=== PATIENT | male | born 1960 | race Caucasian/White ===

== ENCOUNTER 2019-05-19 11:24 | Day surgery (SDC) | payer BC ==
[~2019-05-19] VITALS: Ht 172.7 cm; Wt 103.0 kg
[~2019-05-19 11:24] MED LIST: CEFAZOLIN 1,000 MG ONE
[2019-05-19 11:42] VITALS: BP 156/93
[2019-05-19] MEDS ORDERED: LACTATED RINGERS 1,000 ML IV SCH (11:47)
[2019-05-19] MEDS ORDERED: PLEASE ENTER WEIGHT MC SCH (12:00)
[2019-05-19] MEDS ORDERED: GOUT MED (12:24)
[2019-05-19 13:07] LABS: MICROSCOPIC INDICATED
[2019-05-19] MEDS ORDERED: FENTANYL PF 250 MCG/5ML ONE (13:27)
[2019-05-19] MEDS ORDERED: MIDAZOLAM 1 MG/ML, 2ML ONE (13:27)
[2019-05-19] MEDS ORDERED: PROPOFOL 10 MG/ML, 20ML ONE (13:28)
[2019-05-19] MEDS ORDERED: DEXAMETHASONE 4 MG/ML, 1ML ONE (13:28)
[2019-05-19] MEDS ORDERED: SUCCINYLCHOLINE 20 MG/ML, 10ML ONE (13:28)
[2019-05-19] MEDS ORDERED: ROCURONIUM 10MG/ML,5ML ONE (13:28)
[2019-05-19 13:43] LABS: CULTURE INDICATED? NO
[2019-05-19] MEDS ORDERED: MEPERIDINE/PF 25MG/ML,1ML IVPush PRN (14:00)
[2019-05-19] MEDS ORDERED: PROMETHAZINE 12.5 MG SUPP PR PRN (14:00)
[2019-05-19] MEDS ORDERED: ONDANSETRON ODT 8 MG PO PRN (14:00)
[2019-05-19] MEDS ORDERED: HALOPERIDOL 5 MG/ML IV PRN (14:00)
[2019-05-19] MEDS ORDERED: ONDANSETRON 2MG/ML, 2ML IV PRN (14:00)
[2019-05-19] MEDS ORDERED: DIAZEPAM 5 MG/ML, 2ML IVPush PRN (14:00)
[2019-05-19] MEDS ORDERED: OXYcodone 5 MG/5 ML ORAL.SOL UDC PO PRN (14:00)
[2019-05-19] MEDS ORDERED: PROMETHAZINE 25 MG/ML, 1ML IV PRN (14:00)
[2019-05-19] MEDS ORDERED: MIDAZOLAM 1 MG/ML, 2ML IV PRN (14:00)
[2019-05-19] MEDS ORDERED: ALBUTEROL SULFATE 2.5 MG/3 ML NPPB PRN (14:00)
[2019-05-19] MEDS ORDERED: FENTANYL PF 100 MCG/2ML IV PRN (14:00)
[2019-05-19] MEDS ORDERED: ACETAMINOPHEN 325 MG TABLET PO PRN (14:00)
[2019-05-19] MEDS ORDERED: LABETALOL 5MG/ML, 20ML IV PRN (14:00)
[2019-05-19] MEDS ORDERED: EPHEDRINE 50 MG/ML, 1ML IVPush PRN (14:00)
[2019-05-19] MEDS ORDERED: hydrALAzine 20 MG/ML, 1ML IV PRN (14:00)
[2019-05-19] MEDS ORDERED: ONDANSETRON 2MG/ML, 2ML ONE (14:52)
[2019-05-19] MEDS ORDERED: OMNIPAQUE 350 MG/ML, 50 ML BOTTLE ONE (15:00)
[2019-05-19] MEDS ORDERED: HYDROmorphone 1 MG/ML, 1ML INJ IVPush PRN (15:00)
== END 2019-05-19 17:55 | disposition home or self-care (01) ==
LOC: OUT 11:24
PROVIDERS: ATTEND Urology
DX: N20.0 Calculus of kidney (principal); E66.9 Obesity, unspecified; Z68.32 Body mass index [BMI] 32.0-32.9, adult; Z79.82 Long term (current) use of aspirin; Z79.899 Other long term (current) drug therapy; Z87.442 Personal history of urinary calculi; Z88.5 Allergy status to narcotic agent; Z98.52 Vasectomy status; Z98.890 Other specified postprocedural states
CPT/HCPCS: 52356; 74420; 81001; 82360; 88300; 93005; C1758; C1769; C2617; J0330; J0690; J1100; J2250; J2405; J2704; J3010; J7120; Q9967

== ENCOUNTER 2020-05-25 10:43 | Inpatient (IN) | payer BC ==
[~2020-05-25] VITALS: Ht 172.7 cm; Wt 109.5 kg
[~2020-05-25 10:43] MED LIST changes: -CEFAZOLIN 1,000 MG ONE; +GOUT MED
[2020-05-25] MEDS ORDERED: SODIUM CHLORIDE FLUSH 10ML SYR IVF ONE (11:00)
--- NOTE | 2020-05-25 11:38 | NUR ---
PT C/O RIGHT LOWER ABD. PT WENT TO [facility] FOR THE PAIN AND WAS TOLD TO COME TO [facility] FOR TX OF KIDNEY STONE DESCRIBED "BIG" AND WONT PASS ON ITS OWN. PT PAIN 05/16 CURRENTLY. IV PLACED.
[2020-05-25 11:46] LABS: BASOPHILS % (AUTO) 1 % (0-1); EOSINOPHILS % (AUTO) 1 % (1-7); LYMPHOCYTES % (AUTO) 14 % (22-44); MEAN CORPUSCULAR HEMOGLOBIN 31.2 pg (27.5-34.5); MEAN CORPUSCULAR HGB CONC 35.1 g/dL (33.2-36.2); MONOCYTES % (AUTO) 9 % (2-9); NEUTROPHILS % (AUTO) 74 % (42-75); PLATELET COUNT 161 x10^3/uL (130-400); RED BLOOD COUNT 5.08 x10^6/uL (4.38-5.82); RED CELL DISTRIBUTION WIDTH 13.9 % (9.4-14.8)
[2020-05-25 11:51] LABS: MD NO
[2020-05-25 11:57] LABS: ALANINE AMINOTRANSFERASE 28 U/L (12-78); ALBUMIN 3.9 g/dL (3.4-5.0); ANION GAP 9 mmol/L (5-15); CALCIUM 9.7 mg/dL (8.5-10.1); CHLORIDE 112 mmol/L (98-107); CREATININE 1.78 mg/dL (0.7-1.3)
[2020-05-25 11:59] LABS: ALKALINE PHOSPHATASE 69 U/L (45-117); BILIRUBIN,TOTAL 0.6 mg/dL (0.2-1.0); TOTAL PROTEIN 7.7 g/dL (6.4-8.2)
--- NOTE | 2020-05-25 12:31 | NUR ---
REPORT TO XIMENA RN
[2020-05-25 12:39] LABS: MICROSCOPIC INDICATED
--- NOTE | 2020-05-25 12:45 | NUR ---
SPOUSE CELL, SAAD [phone]
[2020-05-25] MEDS ORDERED: OMNIPAQUE 350 MG/ML, 50 ML BOTTLE ONE (13:01)
[2020-05-25] MEDS ORDERED: CHLORHEXIDINE 15 ML UDC ONE (13:06)
[2020-05-25] MEDS ORDERED: ONDANSETRON ODT 4 MG PO PRN (13:30)
[2020-05-25] MEDS ORDERED: DOCUSATE 100 MG CAPSULE PO PRN (13:30)
[2020-05-25] MEDS ORDERED: POLYETHYLENE GLYCOL 17 GM PACKET PO PRN (13:30)
[2020-05-25] MEDS ORDERED: ONDANSETRON 2MG/ML, 2ML IVPush PRN ×2 (13:30→15:00)
[2020-05-25] MEDS ORDERED: HYDROcodone/APAP 5/325 TABLET PO PRN (13:30)
[2020-05-25] MEDS: SODIUM CHLORIDE 0.9% 1,000 ML IV SCH (13:30)
[2020-05-25] MEDS ORDERED: CHLORHEXIDINE 15 ML UDC MM ONE (13:30)
[2020-05-25] MEDS ORDERED: LACTATED RINGERS 1,000 ML IV SCH (13:30)
[2020-05-25] MEDS ORDERED: MELATONIN 5 MG TABLET PO PRN (13:30)
[2020-05-25] MEDS ORDERED: hydrALAzine 20 MG/ML, 1ML IVPush PRN (13:30)
[2020-05-25] MEDS ORDERED: BISACODYL 10 MG SUPP PR PRN (13:30)
[2020-05-25] MEDS ORDERED: morphine SULFATE 10 MG/ML, 1ML IVPush PRN (13:30)
[2020-05-25] MEDS ORDERED: PLEASE ENTER ALLERGIES MC SCH ×2 (14:30)
[2020-05-25] MEDS ORDERED: ONDANSETRON 2MG/ML, 2ML ONE (14:44)
[2020-05-25] MEDS ORDERED: GLYCOPYRROLATE 0.2MG/1ML, 5ML ONE (14:44)
[2020-05-25] MEDS ORDERED: CEFAZOLIN 1,000 MG ONE (14:44)
[2020-05-25] MEDS ORDERED: DEXAMETHASONE 4 MG/ML, 1ML ONE (14:44)
[2020-05-25] MEDS ORDERED: SUCCINYLCHOLINE 20 MG/ML, 10ML ONE (14:44)
[2020-05-25] MEDS ORDERED: PROPOFOL 10 MG/ML, 20ML ONE (14:44)
[2020-05-25] MEDS ORDERED: FENTANYL PF 250 MCG/5ML ONE (14:44)
[2020-05-25] MEDS ORDERED: SUGAMMADEX 200 MG/2 ML IVPush ONE (14:44)
[2020-05-25] MEDS ORDERED: ROCURONIUM 10MG/ML,5ML ONE (14:44)
[2020-05-25] MEDS ORDERED: NEOSTIGMINE 1 MG/ML, 10ML ONE (14:44)
[2020-05-25] MEDS ORDERED: METHOCARBAMOL 1,000 MG in DEXTROSE 5% 100 ML IV PRN (15:00)
[2020-05-25] MEDS ORDERED: ACETAMINOPHEN 325 MG TABLET PO PRN (15:00)
[2020-05-25] MEDS ORDERED: PROMETHAZINE 25 MG/ML, 1ML IVPush PRN (15:00)
[2020-05-25] MEDS ORDERED: hydrALAzine 20 MG/ML, 1ML IV PRN (15:00)
[2020-05-25] MEDS ORDERED: OXYcodone 5 MG/5 ML ORAL.SOL UDC PO PRN (15:00)
[2020-05-25] MEDS ORDERED: LABETALOL 5MG/ML, 20ML IV PRN (15:00)
[2020-05-25] MEDS ORDERED: HYDROmorphone 1 MG/ML, 1ML INJ IVPush PRN (15:00)
[2020-05-25] MEDS ORDERED: MEPERIDINE/PF 25MG/0.5ML IVPush PRN (15:00)
[2020-05-25] MEDS ORDERED: FENTANYL PF 100 MCG/2ML IV PRN (15:00)
[2020-05-25] MEDS ORDERED: LORazepam 2 MG/ML, 1ML IVPush PRN (15:00)
[2020-05-25] MEDS ORDERED: MEPERIDINE/PF 25MG/ML,1ML ONE (15:03)
[2020-05-25] MEDS: KETOROLAC 30 MG/1 ML IV PRN (17:43)
[2020-05-25] MEDS: ACETAMINOPHEN 325 MG TABLET PO PRN (17:44)
[2020-05-25 17:51] VITALS: BP 132/75
[2020-05-25] MEDS: PHENAZOPYRIDINE 200 MG TABLET PO SCH (18:25)
[2020-05-25 20:08] VITALS: BP 104/61
[2020-05-26 00:02] VITALS: BP 110/69
[2020-05-26] MEDS: ACETAMINOPHEN 325 MG TABLET PO PRN ×2 (02:02→05:54)
[2020-05-26] MEDS: SODIUM CHLORIDE 0.9% 1,000 ML IV SCH ×2 (02:10→07:59)
[2020-05-26 04:38] VITALS: BP 122/78
[2020-05-26 05:20] LABS: BASOPHILS % (AUTO) 1 % (0-1); EOSINOPHILS % (AUTO) 3 % (1-7); LYMPHOCYTES % (AUTO) 15 % (22-44); MEAN CORPUSCULAR HEMOGLOBIN 30.8 pg (27.5-34.5); MEAN CORPUSCULAR HGB CONC 34.4 g/dL (33.2-36.2); MEAN PLATELET VOLUME 7.9 fL (7.4-10.4); MONOCYTES % (AUTO) 8 % (2-9); NEUTROPHILS % (AUTO) 73 % (42-75); PLATELET COUNT 147 x10^3/uL (130-400); RED BLOOD COUNT 4.49 x10^6/uL (4.38-5.82); RED CELL DISTRIBUTION WIDTH 13.8 % (9.4-14.8)
[2020-05-26 05:29] LABS: CHLORIDE 112 mmol/L (98-107)
[2020-05-26 05:30] LABS: ANION GAP 8 mmol/L (5-15); CALCIUM 8.5 mg/dL (8.5-10.1); CREATININE 1.48 mg/dL (0.7-1.3)
[2020-05-26 05:37] LABS: MD NO
[2020-05-26] MEDS: KETOROLAC 30 MG/1 ML IV PRN (05:53)
[2020-05-26 07:35] VITALS: BP 133/83
[2020-05-26] MEDS: PHENAZOPYRIDINE 200 MG TABLET PO SCH (07:58)
[2020-05-26 13:10] VITALS: BP 134/82
== END 2020-05-26 14:07 | disposition home or self-care (01) | DRG 660 ==
LOC: ED 12:03 → ORIP 13:00 → 4NE 16:15 → DCLOUNGE 05-26 13:59
PROVIDERS: ADMIT Internal Medicine; ATTEND Internal Medicine
PROC: 0T768DZ Dilation of Right Ureter with Intraluminal Device, Via Natural or Artificial Opening Endoscopic (ICD-10-PCS; 2020-05-25)
PROC: BT1D1ZZ Fluoroscopy of Right Kidney, Ureter and Bladder using Low Osmolar Contrast (ICD-10-PCS; 2020-05-25)
PROC: 0TC68ZZ Extirpation of Matter from Right Ureter, Via Natural or Artificial Opening Endoscopic (ICD-10-PCS; principal; 2020-05-25 13:30)
DX: N13.6 Pyonephrosis (principal); N20.2 Calculus of kidney with calculus of ureter; I10 Essential (primary) hypertension; M10.9 Gout, unspecified; N17.9 Acute kidney failure, unspecified; Z20.822 Contact with and (suspected) exposure to COVID-19; Z80.1 Family history of malignant neoplasm of trachea, bronchus and lung; Z87.442 Personal history of urinary calculi
CPT/HCPCS: 36415; 74420; 80048; 80053; 81001; 83605; 85025; 87040; 87635; 93005; 99285; G0378; J0690; J1100; J1885; J2175; J2405; J2704; J2710; J3010; Q9967; J0330; J7030